=== PATIENT | female | born 1985 | race Caucasian/White ===

== ENCOUNTER 2018-10-15 13:18 | Emergency (ER) | payer BC ==
[~2018-10-15] VITALS: Ht 152.4 cm; Wt 68.0 kg
--- NOTE | 2018-10-15 13:33 | NUR ---
Patient discharged to home in stable conditon. Written and verbal after care instructions given. Patient verbalizes understanding of instructions.
== END 2018-10-15 13:34 | disposition home or self-care (01) ==
LOC: ER 13:21
DX: J06.9 Acute upper respiratory infection, unspecified (principal)
CPT/HCPCS: A4663

== ENCOUNTER 2021-01-15 12:20 | Emergency (ER) | payer BC, OTHER ==
[~2021-01-15] VITALS: Ht 154.9 cm; Wt 62.1 kg
--- NOTE | 2021-01-15 12:30 | NUR ---
Patient was seen by . She is on a monitor
[2021-01-15 13:01] LABS: BASOPHILS # (AUTO) 0.1 K/uL (0.0-8.0); BASOPHILS % (AUTO) 0.6 % (0.0-2.0); EOSINOPHILS % (AUTO) 0.3 % (0.0-7.0); HEMOGLOBIN 13.1 g/dL (10.9-14.3); LYMPHOCYTES # (AUTO) 2.7 K/uL (20.0-40.0); LYMPHOCYTES % (AUTO) 21.5 % (20.5-51.5); MEAN CORPUSCULAR HEMOGLOBIN 29.1 uug (24.7-32.8); MEAN CORPUSCULAR HGB CONC 33 g/dL (32.3-35.6); MONOCYTES # (AUTO) 0.6 K/uL (2.0-10.0); NEUTROPHILS # (AUTO) 9.2 K/uL (1.8-8.9); NEUTROPHILS % (AUTO) 72.6 % (38.5-71.5); PLATELET COUNT (AUTO) 286 K/uL (179-408); RED BLOOD CELL COUNT(AUTO) 4.49 MIL/uL (3.63-4.92); WHITE BLOOD COUNT (AUTO) 12.6 K/uL (3.8-11.8)
[2021-01-15 13:08] LABS: CREATININE 0.7 mg/dL (0.6-1.3); POTASSIUM 4.7 mmol/L (3.5-5.1)
--- NOTE | 2021-01-15 13:44 | NUR ---
Patient is awake and alert with no new complaints. Denies SOB. Awaiting test results
[2021-01-15] MEDS ORDERED: IV NORMAL SALINE 250 ML IV ONE (14:14)
[2021-01-15] MEDS ORDERED: IOHEXOL 350 100 ML INFUS..BTL ONE (14:14)
[2021-01-15] MEDS ORDERED: SWABABLE VALVE TRANSFER SET EA MC ONE (14:14)
--- NOTE | 2021-01-15 15:03 | NUR ---
Dr Uribe at bedside speaing to patient about test results and plan of care
--- NOTE | 2021-01-15 16:01 | NUR ---
DC and f/u instructions given and explained to patient who states she understands all isntructions
--- NOTE | 2021-01-15 16:01 | NUR ---
IV removed. Catheter intact and site benign. Pressure and 4x4 gauze applied to site. No bleeding noted.
== END 2021-01-15 16:02 | disposition home or self-care (01) ==
LOC: ER 12:22
DX: R79.1 Abnormal coagulation profile (principal); R07.89 Other chest pain; Z87.09 Personal history of other diseases of the respiratory system
CPT/HCPCS: 36415; 71275; 80048; 85025; 85379; 99285; Q9967; A4663; J7050

== ENCOUNTER 2022-03-23 10:29 | Emergency (ER) | payer SELFPAY ==
[~2022-03-23] VITALS: Ht 152.4 cm; Wt 64.9 kg
--- NOTE | 2022-03-23 10:51 | NUR ---
[email or web address], medical screening exam in progress
[2022-03-23] MEDS ORDERED: AMOX875T2 PO (11:04)
--- NOTE | 2022-03-23 11:04 | NUR ---
Patient said that she can not wait for the rapid strep results, MD notified.
--- NOTE | 2022-03-23 11:16 | NUR ---
Patient discharged to home in stable condition with brisk steady gait. Written and verbal after care instructions given. Patient verbalized understanding and compliance of instructions. Stressed follow up with primary doctor and ENT specialist or return to ER for worsening s/s.
== END 2022-03-23 11:17 | disposition home or self-care (01) ==
LOC: ER 10:34
DX: J02.0 Streptococcal pharyngitis (principal)
CPT/HCPCS: 86403; A4663